=== PATIENT | female | born 1980 | race Caucasian/White ===

== ENCOUNTER 2024-01-29 15:41 | Outpatient (CLI) | payer OTHER ==
--- NOTE | 2024-01-29 16:14 | Sleep Patient Instructions ---
Sleep Center Visit Summary - Patient Visit Information Reason for Visit: Initial consult for evaluation of sleep disordered breathing and other sleep issues. - Patient Instructions Instructions Attached: Sleep Study Home Monitor, Sleep Study Additional Instructions: You will be completing a sleep study, either an in-lab polysomnography (PSG) or home sleep study (HST). You will follow-up in the sleep care office after the sleep study is completed to hear the results and talk about therapy, if needed. You will be called by our office staff to schedule this appointment, but you may contact us with any questions. - Clinic Information Contact: [facility] [address] [place] [id number] [email or web address] T: [phone]
--- NOTE | 2024-01-29 16:17 | SLEEP CARE CONSULTATION ---
Information from patient questionnaire entered by Be Albarado. I have reviewed and concur with the information entered by Be Albarado. This document represents the service I personally performed and the decisions made by me, Shannon Alejandro ARNP. History of Present Illness Service Date and Time: 01/29/2024 1541 Reason for Visit: New patient Chief Complaint: reports: Snoring Date of Onset: A FEW YRS Usual bedtime: 0401-9263 Time it takes to fall asleep: 30MINS Snores at night: Yes Observed to quit breathing while asleep: No Sleeps alone due to snoring: No Number of times waking at night: 1-2 Reasons for waking at night: reports: Bathroom, Other (UNKNOWN). denies: Choking, Snoring, Gasping for air Toss, Turn, or Twitch while sleeping: No Recalls having dreams: Yes Usually gets out of bed at: 2826-0455; weekends about 0700 Feels refreshed in the morning: Yes Morning headache: No Sleepy or fatigued during the day: Yes (mental fatigue from working) Ever fallen asleep while driving: No Takes day naps: No Dreams during day naps: No Prior sleep studies: No Additional HPI information: I had the pleasure of seeing LANCE ACKERMAN today regarding the possibility of her having a sleep disorder. Her current complaint is snoring. She says her primary sent her here because she is overweight and snores. He says her snoring comes and goes but he has no problem sleeping in same room. He has never noticed that she stops breathing at night. She states she normally wakes up feeling rested. 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 She does not wake up with headaches and avoids taking naps during the day. She says her mother has sleep apnea and is treated with a CPAP machine. - Parasomnia Symptoms Ever been unable to move upon waking from sleep: No Walks in sleep: No Talks in sleep: No Ever acted out dreams in sleep: No Ever felt weak in the knees when startled or emotional: No Bothered by creepy, crawly, restless sensations in legs: No Problems with memory or concentration: No Subjective Initial [place] Sleepiness Scale score: 6 (01/03/24) Past Medical History Past Medical History: reports: Anemia Social History The patient's occupation is a TEACHER. Patient is and lives in . Have you smoked in the past 12 months: No Alcohol use: Yes Alcohol amount and frequency: 1-2 drinks a week, if that Caffeine use: Yes Caffeine amount and frequency: DAILY coffee in AM Family History Family history of sleep disordered breathing: Yes Family Hx Sleep Apnea: Mother: Snoring, Sleep apnea - Treated Allergies and Home Medications Known drug allergies: Yes (as listed) Drug allergies reviewed: Yes Home medication list reviewed: Yes Allergy and home medication list: Allergies strawberry Allergy (Verified 01/29/24 16:06) Rash morphine Adverse Reaction (Verified 01/29/24 16:06) Hallucinations Home Medications Cholecalciferol (Vitamin D3) [Vitamin D3] See Rx Instructions .ROUTE .COMPLEX 01/27/24 [History] Ferrous Bis-Glycinate Chelate [Iron Bisglycinate] See Rx Instructions .ROUTE .COMPLEX 01/27/24 [History] Review of Systems Weight loss over past 5 years: 15 in last 5 months Cardiovascular: denies: high blood pressure Gastrointestinal: denies: heartburn Neurological: denies: headaches Psychiatric: denies: anxiety, depression Ear/Nose/Throat: reports: nasal congestion, wisdom teeth removed. denies: tonsillectomy Immunologic: reports: sneezing, allergies to food or environment (strawberry) Physical Exam Vital signs obtained and entered by: BE Hassan MA Blood Pressure: 154/84 (LEFT ARM) Cuff size: long Heart Rate: 75 O2 Saturation: 100 Height: 5 ft 5 in Weight: 238 lb Body Mass Index: 39.6 BMI Classification: Obese Neck circumference: 17.25 Nostrils: patent to airflow Mouth and throat: narrow oropharynx Hard palate: normal Uvula: normal Uvula visualization: 25% Mallampati Class III Tongue: enlarged in size with teeth rodriguez on lateral edges Tonsils: 2+ Neck: normal w/o lymphadenopathy or thyromegaly Heart: regular rate and rhythm Lungs: clear bilaterally Impression and Plan 1. Suspected Obstructive Sleep Apnea-Hypopnea Syndrome, as suggested by a history of irregular snoring and daytime fatigue. Narrow oropharynx and obesity are common predisposing factors for obstructive sleep apnea-hypopnea syndrome. I recommend proceeding to polysomnography to confirm the diagnosis and to assess severity. If the patient has significant sleep disordered breathing, a manual CPAP titration study will also be performed to find the optimal treatment pressure. I informed the patient of what the sleep studies involve and after some discussion, obtained agreement to proceed. The pathophysiology of obstructive sleep apnea-hypopnea syndrome was discussed with the patient and he alth risks of cardiovascular and cerebrovascular disease if not treated. Risks of drowsy driving discussed in detail and patient advised to avoid long distance driving and to focus puller at the first sign of drowsiness. Patient agreed to plan. * Schedule polysomnography * Avoid long distance driving or driving when feeling sleepy. * Avoid alcohol, sedative and muscle relaxant around bedtime. * Attempt to lose weight. * Review instructions provided by trained office staff on how to prepare for the sleep study. * Return for follow-up after sleep study completed. Counseling Topics: Weight loss health impact Plan: PSG/HST Visit Type: In Office Time Spent with Patient (minutes): 30 Provider Statement: I spent 100% of the Face to Face Visit with the patient with greater than 50% spent counseling the patient and coordination of care.
[2024-01-29 16:36] VITALS: BP 154/84; O2SAT 100
== END 2024-01-29 15:42 | disposition home or self-care (01) ==
LOC: SC 15:41
PROVIDERS: ATTEND Nurse Practitioner Family
DX: R53.83 Other fatigue (principal); R06.83 Snoring; E66.9 Obesity, unspecified; Z68.39 Body mass index [BMI] 39.0-39.9, adult
CPT/HCPCS: 99203; 99212

== ENCOUNTER 2024-02-26 08:24 | Outpatient (CLI) | payer OTHER | END 2024-02-26 08:25 | disposition home or self-care (01) | LOC: SC 08:24 | PROVIDERS: ATTEND Nurse Practitioner Family | DX: G47.33 Obstructive sleep apnea (adult) (pediatric) (principal); R09.02 Hypoxemia; E66.9 Obesity, unspecified; Z68.39 Body mass index [BMI] 39.0-39.9, adult | CPT/HCPCS: 95806 ==

== ENCOUNTER 2024-04-15 20:36 | Outpatient (CLI) | payer OTHER | END 2024-04-15 20:37 | disposition home or self-care (01) | LOC: SC 20:36 | PROVIDERS: ATTEND Nurse Practitioner Family | DX: G47.33 Obstructive sleep apnea (adult) (pediatric) (principal) | CPT/HCPCS: 95811 ==

== ENCOUNTER 2024-05-25 08:35 | Outpatient (CLI) | payer OTHER ==
--- NOTE | 2024-05-25 09:13 | Sleep Patient Instructions ---
Sleep Center Visit Summary - Patient Visit Information Reason for Visit: Titration study follow-up - Patient Instructions Additional Instructions: You were here for follow up of titration study. You will be continued on CPAP therapy with pressure at 8-12 cmH2O. Please let us know if the pressure change is uncomfortable and we can make further adjustments of the pressure. You already have your CPAP and we will need to have a compliance visit in about a month. You should follow up with sleep care in 1-2 months. You may contact us sooner for any questions or concerns. - Clinic Information Contact: [facility] [address] [place] [email or web address] T: [phone]
--- NOTE | 2024-05-25 09:17 | SLEEP CARE CONSULTATION ---
Information from patient questionnaire entered by Rocio Albarado. I have reviewed and concur with the information entered by Rocio Albarado. This document represents the service I personally performed and the decisions made by , Shannon Alejandro ARNP. History of Present Illness Service Date and Time: 05/25/2024 0835 Initial [place] Sleepiness Scale score: 6 (01/03/24) Current [place] Sleepiness Scale score: 4 (05/25/24) Additional HPI information: LANCE ACKERMAN returns for follow up of a manual CPAP titration study performed on 04/15/2024. Previous study done on 02/26/2024 showed severe obstructive sleep apnea with AHI 42.8. The patient was informed of the following polysomnography findings: CPAP was initiated at 5 cmH2O and titrated up to 12 cmH2O. CPAP at 11 cmH2O appeared to be optimal (AHI of 2.6 per hour on the pressure). There was supine sleep on the pressure. Oxygen saturation was minimally low. Lower CPAP settings allowed frequent residual respiratory events. The patient appeared to have tolerated positive airway pressure therapy fairly well. She is using a ResMed N20, medium cushion on night of sleep study. Using CPAP every night in order to get used to it was emphasized. Patient advised to put CPAP mask on before getting into bed so as not to fall asleep without CPAP. If the mask given is uncomfortable or is difficult to keep on through the night even with adjustment, contact the CPAP supplier as many will replace with another mask style if notified before 30 days. If snoring or perceives is not getting enough air or too much air from the machine, notify this office. Patient counseled not drink alcohol less than 4 hours before bedtime as it can increase snoring and apnea. Patient was cautioned about risks of drowsy driving until sleepiness symptoms resolve. Patient denies drowsy drshamari ng. Sleep Study - Results Type of Sleep Study: Home sleep study (COMPLETED 02/26/24 TITRATION STUDY COMPLETED ON 04/15/24) Prior sleep studies: No Polysomnography/Home Sleep Study results: IMPRESSION: The quality of the study is good. CPAP was initiated at 5 cmH2O and titrated up to 12 cmH2O. CPAP at 11 cmH2O appeared to be optimal (AHI of 2.6 per hour on the pressure). There was supine sleep on the pressure. Oxygen saturation was minimally low. Lower CPAP settings allowed f requent residual respiratory events. The patient appeared to have tolerated positive airway pressure therapy fairly well. The patients sleep efficiency was reduced due to sleep onset insomnia. The sleep architecture was normal. There was no periodic leg movement of sleep. Cardiac rhythm was normal sinus rhythm without significant arrhythmia. No abnormal behavior (parasomnia) observed during the night. CONCLUSIONS and RECOMMENDATIONS: 1. Obstructive sleep apnea-hypopnea (ICD-10 G47.33), severe (AHI was 42.8), adequately controlled with CPAP at 11 cmH2O. CPAP therapy is, therefore, recommended at the pressure setting. AutoCPAP set between 8 and 12 cmH20 is also appropriate. Mask used was a ResMed N20 nasal mask size medium. With a BMI of 39.6 Kg/M2, weight loss is also recommended. Allergies and Home Medications Known drug allergies: Yes (as listed) Drug allergies reviewed: Yes Home medication list reviewed: Yes (no changes) Allergy and home medication list: Allergies strawberry Allergy (Verified 05/25/24 08:36) Rash morphine Adverse Reaction (Verified 05/25/24 08:36) Hallucinations Review of Systems Review of systems same as previous: Yes (NO CHANGE) Physical Exam Vital signs obtained and entered by: ROCIO Hassan MA Blood Pressure: 154/79 (LEFT ARM) Cuff size: long Heart Rate: 71 O2 Saturation: 100 Height: 5 ft 5 in Weight: 245 lb 12.8 oz Body Mass Index: 40.8 BMI Classification: Morbidly Obese Impression and Plan 1. Obstructive Sleep Apnea-Hypopnea Syndrome, severe. Patient returns to office for results of her titration study and to be set up on CPAP therapy. Patient had called previously to have her CPAP ordered and pressures set, which was done. She has been trying to put it on nightly and has been adjusting to it fairly well. The patient will be continued on nasal autoCPAP therapy with pressure set at 8-12 cmH2O. Compliance guidelines also reviewed. A copy of compliance guidelines will be given for reference at check out. She likes the N20 mask and is trying to use her machine nightly since getting it about 19 days ago. I will have her come back in 1-2 months for compliance followup. She voiced agreement. I reviewed data for last 2 weeks showing 16/19 compliant days with 6 hours 54 minutes nightly average. Her average AHI is 1.1 with average pressure used at 10.7 cmH2O. 2. Obesity, unspecified. Currently patients BMI is 40.8. Obesity increases the risk of apnea, CPAP pressure requirements and overall health risks especially cardiovascular and diabetes. Thus patient is advised to lose weight. * Continue Nasal auto CPAP therapy, pressure at 8-12 cmH2O. * Attempt to lose weight. * Avoid alcohol consumption near bedtime. * The patient is again cautioned about driving until sleepiness completely resolves. * Return 1-2 months. I will assess response to therapy and compliance at that time. Continue with device pressure at (cmH2O): 8-12 Counseling Topics: Weight loss health impact Follow up with Sleep Care in: 1-2 months Visit Type: In Office Time Spent with Patient (minutes): 26 Provider Statement: I spent 100% of the Face to Face Visit with the patient with greater than 50% spent counseling the patient and coordination of care.
[2024-05-25 09:21] VITALS: BP 154/79; O2SAT 100
== END 2024-05-25 08:36 | disposition home or self-care (01) ==
LOC: SC 08:35
PROVIDERS: ATTEND Nurse Practitioner Family
DX: G47.33 Obstructive sleep apnea (adult) (pediatric) (principal); E66.01 Morbid (severe) obesity due to excess calories; Z68.41 Body mass index [BMI] 40.0-44.9, adult
CPT/HCPCS: 99212; 99213